=== PATIENT | female | born 1985 | race Two or more races ===

== ENCOUNTER 2016-09-30 20:28 | Observation (INO) | payer OTHER ==
[~2016-09-30] VITALS: Ht 167.6 cm; Wt 81.6 kg
[2016-09-30] MEDS ORDERED: PREN-88 PO (21:17)
[2016-09-30] MEDS: LACTATED RINGERS 1,000 ML IV SCH ×2 (22:51→23:05)
[2016-09-30] MEDS: MAGNESIUM 20 G PREMIX (L & D) 500 ML IV SCH (23:01)
[2016-09-30] MEDS ORDERED: METHYLERGONOVINE MALEATE 0.2 MG/ML IM PRN (23:15)
[2016-09-30] MEDS ORDERED: BETAMETHASONE ACET/BETAMET 30 MG/5 ML VIAL IM ONE (23:15)
[2016-09-30 23:35] LABS: BASOPHILS % 0.1 % (0.0-2.0); EOSINOPHILS % 0.5 % (0.0-5.0); HEMATOCRIT. 34.6 % (36.0-48.0); HEMOGLOBIN. 11.4 g/dL (12.0-16.0); MEAN CORPUSCULAR HEMOGLOBIN 27.1 pg (28.0-32.0); MEAN CORPUSCULAR VOLUME 81.8 fL (81.0-99.0); MEAN PLATELET VOLUME 10.3 fl (7.4-10.4); MONOCYTES % 5.5 % (2.0-8.0); NEUTROPHILS % 83.9 % (40.0-76.0); PLATELET 155 x1000/uL (130-400); RED BLOOD CELL COUNT 4.23 mill/uL (4.2-5.4); RED CELL DISTRIBUTION WIDTH 14.1 % (11.6-14.6)
[2016-09-30 23:38] LABS: INR 1.1; PARTIAL THROMBOPLASTIN TIME 31.7 sec (24.0-34.0); PROTHROMBIN TIME 11.4 sec
[2016-09-30 23:59] LABS: *AMPHETAMINES SCREEN URINE NEGATIVE (NEGATIVE); *BARBITURATES SCREEN URINE NEGATIVE (NEGATIVE); *BENZODIAZEPINES SCREEN URINE NEGATIVE (NEGATIVE); *COCAINE SCREEN URINE NEGATIVE (NEGATIVE); CANNABINOID URINE SCREEN NEGATIVE (NEGATIVE); METHADONE URINE SCREEN NEGATIVE (NEGATIVE); OPIATES URINE SCREEN NEGATIVE (NEGATIVE); PHENCYCLIDINE URINE SCREEN NEGATIVE (NEGATIVE)
[2016-10-01 00:20] LABS: GLUCOSE URINE NEGATIVE (NEGATIVE); KETONES URINE NEGATIVE (NEGATIVE); LEUKOCYTE ESTERASE URINE 2+ (NEGATIVE); NITRITE URINE NEGATIVE (NEGATIVE); OCCULT BLOOD URINE 3+ (NEGATIVE); PH URINE 7.5 (4.5-8.0); PROTEIN URINE NEGATIVE (NEGATIVE); SPECIFIC GRAVITY URINE 1.002 (1.005-1.030); UROBILINOGEN URINE 0.2 E.U./dL (0.2-1.0)
[2016-10-01 00:21] LABS: CLARITY URINE CLEAR (CLEAR); COLOR URINE YELLOW (YELLOW)
[2016-10-01 06:47] LABS: HEPATITIS B SURFACE ANTIGEN NEGATIVE; RUBELLA IGG 80.5 IU/mL (4.99-10)
[2016-10-01] MEDS: MAGNESIUM 20 G PREMIX (L & D) 500 ML IV SCH ×2 (06:54→16:52)
[2016-10-01] MEDS: LACTATED RINGERS 1,000 ML IV SCH ×2 (13:30→23:12)
[2016-10-01 16:52] VITALS: BP 101/58
[2016-10-01] MEDS ORDERED: BETAMETHASONE ACET/BETAMET 30 MG/5 ML VIAL IM ONE (23:15)
== END 2016-10-02 00:05 | disposition short-term general hospital (02) ==
LOC: L&D 20:28
PROVIDERS: ADMIT Obstetrics & Gynecology; ATTEND Obstetrics & Gynecology
DX: O60.02 Preterm labor without delivery, second trimester (principal); O99.282 Endocrine, nutritional and metabolic diseases complicating pregnancy, second trimester; E23.6 Other disorders of pituitary gland; O99.412 Diseases of the circulatory system complicating pregnancy, second trimester; I61.5 Nontraumatic intracerebral hemorrhage, intraventricular; Z3A.25 25 weeks gestation of pregnancy
CPT/HCPCS: 36415; 76805; 76818; 80305; 81001; 83735; 85025; 85610; 85730; 86592; 86703; 86762; 86850; 86900; 86901; 87340; 96365; 96366; 96372; G0378; J0702; J3475; J7120; 81003; 96360; 96361